=== PATIENT | female | born 1935 | race Caucasian/White ===

== ENCOUNTER → 2018-07-07 | Day surgery (SDC) | payer MEDICARE, BC ==
[~2018-07-07] MED LIST: APAP650 PO; ASPIR 8181 M1 PO; ATORVASTATIN CA40 MG PO; B-121000 MC2 PO; BETAPACE80 MG PO; CENTRUM SILVER1 EAC4 PO; COUMADIN 3 MG TA3 M1 PO; COZAAR 25 MG TA25 M2 PO; CRESTOR10 MG PO; DIABETA 5MG TABL5 MG PO; ENDOCET 10-3251 EACH PO; FISH OIL 1,001000 M2 PO; FOSAMAX 70 MG T70 MG PO; GLYBURIDE PO; HYDROCORTISONE28 GM TP; HYDROCORTISONE30 G9 RECTAL; HYZAAR 100-251 EACH PO; IBUPROFEN 800800 M1 PO; IRON325 PO; KEPPRA 500 MG500 MG PO; LANTUS SUBQ; LEVOTHYROXIN0.088 MG PO; LIPITOR 20 MG T20 M1 PO; MAGNESIUM OXID400 MG PO; MAGOX 400400 MG PO; METFORMIN HCL500 MG PO; MIRALAX17 GM PO; NEURONTIN 300300 M1 PO; NORCO 5-325 TA1 EACH PO; NORVASC10 MG PO; NORVASC5 MG PO; OXYBUTYNIN 5 MG5 M2 PO; PAXIL10 MG PO; PAXIL20 MG PO; PLAVIX 75 MG TA75 M1 PO; POTASSIUM20; TIROSINT25 MCG PO; VITAMIN D1000 UNI1 PO
--- NOTE | ~2018-07-07 | PROC ---
[address] [address] PROCEDURE REPORT Name: AWILDA PEÑALOZA Room: [facility]#: [id number] Admission: 07/07/18 Attend Phys: Joey Pruett MD Discharge: Date of : 31 Report #: [id number] THIS REPORT FOR: //name// For GI report, Please see the Provation report in Perceptive 7. By: 1630[facility] Staff [facility] /LUÍS
[2018-07-07 10:37] LABS: ABSOLUTE BASOPHILS 0.1 thou/uL (0.0-0.2); ABSOLUTE EOSINOPHILS 0.3 thou/uL (0.0-0.7); ABSOLUTE LYMPHOCYTES 3.4 thou/uL (0.8-5.3); ABSOLUTE MONOCYTES 0.8 thou/uL (0.0-1.2); ABSOLUTE NEUTROPHILS 6.3 thou/uL (1.6-8.1); BASOPHILS 1.3 %; EOSINOPHILS 2.9 %; HEMATOCRIT 37.1 % (37.0-47.0); HEMOGLOBIN 12.1 gm/dL (12.0-15.0); LYMPHOCYTES 31.2 %; MCH 29.1 pg (26.0-34.0); MCHC 32.6 g/dL (28.0-37.0); MCV 89.2 fL (80.0-100.0); MONOCYTES 7.2 %; MPV 10.5 fl. (7.2-11.1); NUCLEATED RBCS 0 /100WBC; PLATELET COUNT* 290 thou/uL (150-400); POLYS 57.4 %; RBC 4.16 mil/uL (4.20-5.00); RDW-CV 15.7 % (10.5-14.5); WBC 10.9 thou/uL (4.0-11.0)
[2018-07-07 11:28] LABS: ALBUMIN 2.9 g/dL (3.4-5.0); ALKALINE PHOSPHATASE 20 U/L (46-116); ANION GAP 11 mmol/L (7-16); BUN 7 mg/dL (7-18); CHLORIDE 97 mmol/L (98-107); CO2 26 mmol/L (21-32); CREATININE 0.8 mg/dL (0.6-1.3); GLUCOSE 77 mg/dL (70-99); SGOT 25 U/L (15-37); SGPT 20 U/L (30-65); SODIUM 134 mmol/L (136-145); TOTAL BILIRUBIN 0.6 mg/dL (<0.1-1.0); TOTAL PROTEIN 7.7 g/dL (6.4-8.2)
--- NOTE | 2018-07-07 15:04 | EKG ---
[place] [address] ELECTROCARDIOGRAM REPORT Name: BELTRANAWILDA LOPEZ Room: [facility]#: [id number] Admission: 07/07/18 Attend Phys: Joey Pruett MD Discharge: Date of : 31 Report #: [id number] THIS REPORT FOR: //name// [facility] Test Date: 2018-07-07 Test Time: 10:00:59 Pat Name: AWILDA PEÑALOZA Department: Room: Gender: F Client Service Supervisor: : [id number] Requested By: Joey Pruett Order Number: [id number] Reading MD: Bernard Herrera Measurements Intervals [place] Rate: 62 P: IN: 307 QRS: -13 QRSD: 106 T: 10 QT: 482 QTc: 490 Interpretive Statements sinus rhythm Prolonged IN interval Abnormal R-wave progression, early transition Borderline T abnormalities, inferior leads Borderline prolonged QT interval Baseline wander in lead(s) V3,V4,V5,V6 Electronically Signed On 07-07-2018 15:03:54 [employer]PER[employer] by Bernard Herrera [email or web address] <ELECTRONICALLY SIGNED> By: Bernard Herrera MD, FACC 07/07/18 1503 1000 1000 Bernard Herrera MD, [facility] /EPI
--- NOTE | 2018-07-13 12:05 | PATH ---
[address] [address] PATHOLOGY RPT PROCEDURE Name: AWILDA PEÑALOZA Room: [facility].#: [id number] Admission: 07/07/18 Date of : 31 Discharge: Report #: [id number] Path Case #: [id number] [facility] Accession Number: [id number] . 01 Material submitted: . DESCENDING COLON POLYP . 01 Clinical history: . Pre-OP DX: Abnormal CT scan, constipation, personal Hx colon polyps, Hx breast cancer Post-OP DX: Long-term use of anticoagulants, benign carcinoid tumor duodenum . 02 Diagnosis: Descending colon polyp, biopsy: - Tubular adenoma, negative for high grade dysplasia. . (MAP:vjm;07/08/2018) AGA/07/08/2018 . 02 Electronically signed: . Krish Rodriguez MD, Pathologist NPI- [id number] . 01 Gross description: . Received in formalin labeled "Awilda Peñaloza, descending colon polyp," is a single segment of andrea soft tissue measuring 0.5 cm in maximum dimension. The specimen is entirely submitted in cassette A1. (TSD; 07/07/2018) TOB/TOB . 02 Pathologist provided ICD-10: D12.4 . 02 CPT . 746217 Specimen Comment: A courtesy copy of this report has been sent to Specimen Comment: [phone], , . Specimen Comment: Report sent to , DR BOLES / DR OG Specimen Comment: A duplicate report has been generated due to demographic updates. Performed at: [address] [id number] MD Marty Torres MD Phone: [phone] Performed at: [address] [id number] [address] [address] PATHOLOGY RPT PROCEDURE Name: AWILDA PEÑALOZA Room: [facility] M.R.#: [id number] Admission: 07/07/18 Date of : 31 Discharge: Report #: [id number] Path Case #: [id number] MD Misael Cortes MD Phone: [phone]
== END | disposition home or self-care (01) ==
LOC: M.SUR 07:00
PROVIDERS: Internal Medicine Gastroenterology
DX: D12.4 Benign neoplasm of descending colon (principal); K57.30 Diverticulosis of large intestine without perforation or abscess without bleeding; K64.4 Residual hemorrhoidal skin tags; K31.89 Other diseases of stomach and duodenum; I10 Essential (primary) hypertension; E11.9 Type 2 diabetes mellitus without complications; E78.5 Hyperlipidemia, unspecified; I48.91 Unspecified atrial fibrillation; K21.9 Gastro-esophageal reflux disease without esophagitis; E66.09 Other obesity due to excess calories; Z86.010 Personal history of colon polyps; Z88.8 Allergy status to other drugs, medicaments and biological substances; Z79.4 Long term (current) use of insulin; Z95.0 Presence of cardiac pacemaker; Z86.73 Personal history of transient ischemic attack (TIA), and cerebral infarction without residual deficits; Z79.899 Other long term (current) drug therapy; Z79.01 Long term (current) use of anticoagulants; Z91.041 Radiographic dye allergy status